=== PATIENT | male | born 1995 | race Caucasian/White ===

== ENCOUNTER 2017-02-16 01:26 | Emergency (ER) | payer OTHER | END 2017-02-16 02:10 | disposition home or self-care (01) | LOC: ER 01:26 | DX: L03.116 Cellulitis of left lower limb (principal); B95.62 Methicillin resistant Staphylococcus aureus infection as the cause of diseases classified elsewhere ==

== ENCOUNTER 2017-02-19 00:15 | Emergency (ER) | payer OTHER | END 2017-02-19 01:20 | disposition home or self-care (01) | LOC: ER 00:15 | DX: Z53.21 Procedure and treatment not carried out due to patient leaving prior to being seen by health care provider (principal) ==